=== PATIENT | female | born 1965 | race Caucasian/White ===

== ENCOUNTER 2016-08-05 21:15 | Emergency (ER) | payer MEDICARE, OTHER | END 2016-08-05 22:14 | disposition home or self-care (01) | LOC: ER 21:15 | DX: M17.12 Unilateral primary osteoarthritis, left knee (principal); M25.551 Pain in right hip; G89.29 Other chronic pain; M54.9 Dorsalgia, unspecified; W19.XXXA Unspecified fall, initial encounter; Y92.017 Garden or yard in single-family (private) house as the place of occurrence of the external cause; Z79.899 Other long term (current) drug therapy; F17.210 Nicotine dependence, cigarettes, uncomplicated | CPT/HCPCS: 73564; 96372; 99070; 99283; 99283-25 ==

== ENCOUNTER 2016-08-20 15:24 | Emergency (ER) | payer MEDICARE, OTHER | END 2016-08-20 18:55 | disposition home or self-care (01) | LOC: ER 15:24 | DX: J06.9 Acute upper respiratory infection, unspecified (principal); R05 Cough; M79.605 Pain in left leg; Z90.710 Acquired absence of both cervix and uterus; Z90.49 Acquired absence of other specified parts of digestive tract; Z98.890 Other specified postprocedural states; Z79.899 Other long term (current) drug therapy | CPT/HCPCS: 87400; 99283 ==